=== PATIENT | female | born 1955 | race Caucasian/White ===

== ENCOUNTER 2022-03-28 15:54 | Inpatient (IN) | payer OTHER, BC ==
[2022-03-28 17:19] VITALS: BMI 21.9
[2022-03-28] MEDS ORDERED: IBUPROFEN 400 MG TABLET (FP) PO PRN (18:51)
[2022-03-28] MEDS ORDERED: BISMUTH SUBSALICYLATE 524 MG/30 ML PO PRN (18:51)
[2022-03-28] MEDS ORDERED: MAGNESIUM CITRATE 300 ML BOTTLE PO PRN (18:51)
[2022-03-28] MEDS ORDERED: ONDANSETRON *ODT* 4 MG TABLET SL PRN (18:51)
[2022-03-28] MEDS ORDERED: MAG HYDROX/AL HYDROX/SIMETH 30 ML UNIT-DOSE CUP PO PRN (18:51)
[2022-03-28] MEDS ORDERED: DICYCLOMINE HCL 10 MG CAPSULE PO PRN (18:51)
[2022-03-28] MEDS ORDERED: NALOXONE HCL (KLOXXADO) 8 MG SPRAY NS PRN (18:51)
[2022-03-28] MEDS ORDERED: ACETAMINOPHEN 325 MG TABLET (FP) PO PRN (18:51)
[2022-03-28] MEDS ORDERED: LOPERAMIDE HCL 2 MG CAPSULE PO PRN (18:51)
[2022-03-28] MEDS ORDERED: MAGNESIUM HYDROX 2400MG/30ML ORAL SUSPENSION 30 ML CUP PO PRN (18:51)
[2022-03-28] MEDS ORDERED: BENZOCAINE/MENTHOL (CHLORASEPTIC ) LOZENGE MM PRN (18:51)
[2022-03-28] MEDS ORDERED: diazePAM 5 MG TABLET ONE (19:30)
[2022-03-28] MEDS ORDERED: diazePAM 5 MG TABLET PO ONE (19:30)
[2022-03-28] MEDS: PRENATAL VITAMINS W/ FOLIC ACID TABLET (FP) PO SCH (19:35)
[2022-03-28] MEDS ORDERED: MELATONIN 5 MG TABLETS PO SCH (22:00)
[2022-03-28] MEDS: diazePAM 5 MG TABLET PO SCH (22:12)
[2022-03-28] MEDS: hydrOXYzine PAMOATE 25 MG CAPSULE (FP) PO SCH (22:12)
[2022-03-28] MEDS: METHOCARBAMOL 500 MG TABLET PO PRN (22:12)
[2022-03-28] MEDS: THIAMINE HCL 100 MG TABLET (FP) PO SCH (22:14)
[2022-03-28] MEDS: IBUPROFEN 600 MG TABLET (FP) PO PRN (23:22)
[2022-03-29] MEDS: diazePAM 5 MG TABLET PO PRN ×4 (00:42→19:13)
[2022-03-29] MEDS: METHOCARBAMOL 500 MG TABLET PO PRN ×3 (03:12→17:40)
[2022-03-29] MEDS: diazePAM 5 MG TABLET PO SCH ×4 (05:46→22:16)
[2022-03-29] MEDS: hydrOXYzine PAMOATE 25 MG CAPSULE (FP) PO SCH ×5 (05:46→22:16)
[2022-03-29] MEDS: PRENATAL VITAMINS W/ FOLIC ACID TABLET (FP) PO SCH (10:24)
[2022-03-29] MEDS: NICOTINE 21 MG/24 HOURS TOPICAL PATCH TD SCH ×2 (10:24)
[2022-03-29] MEDS: amLODIPine BESYLATE 5 MG TABLET (FP) PO SCH (10:24)
[2022-03-29 11:19] LABS: HEMATOCRIT 40.4 % (32.4-45.2); HEMOGLOBIN 13.6 GM/dL (10.7-15.3); MCH 31.8 pg (25.7-33.7); MCHC 33.6 g/dl (32.0-36.0); MEAN CELL VOLUME 94.7 fl (80-96); MEAN PLT VOLUME 8.4 fl (7.5-11.1); PLATELET COUNT 98 10^3/uL (134-434); RBC 4.27 M/mm3 (3.60-5.2); RDW 15.7 % (11.6-15.6); WHITE BLOOD COUNT 6.4 K/mm3 (4.0-10.0)
[2022-03-29 12:39] LABS: BLOOD UREA NITROGEN 14.2 mg/dL (7-18); CALCIUM 9.6 mg/dL (8.5-10.1)
[2022-03-29 12:40] LABS: ALBUMIN 3.8 g/dl (3.4-5.0)
[2022-03-29 12:43] LABS: CREATININE 0.8 mg/dL (0.55-1.3)
[2022-03-29 12:44] LABS: BILIRUBIN,TOTAL 2.2 mg/dL (0.2-1); TOT PROT 6.5 g/dl (6.4-8.2)
[2022-03-29] MEDS: SUVOREXANT 10 MG TABLET PO PRN (22:16)
[2022-03-29] MEDS: THIAMINE HCL 100 MG TABLET (FP) PO SCH (22:16)
[2022-03-30] MEDS: diazePAM 5 MG TABLET PO SCH ×3 (05:31→22:17)
[2022-03-30] MEDS: hydrOXYzine PAMOATE 25 MG CAPSULE (FP) PO SCH ×5 (05:31→22:17)
[2022-03-30] MEDS: IBUPROFEN 600 MG TABLET (FP) PO PRN (05:32)
[2022-03-30] MEDS: NICOTINE 21 MG/24 HOURS TOPICAL PATCH TD SCH (10:20)
[2022-03-30] MEDS: amLODIPine BESYLATE 5 MG TABLET (FP) PO SCH (10:20)
[2022-03-30] MEDS: PRENATAL VITAMINS W/ FOLIC ACID TABLET (FP) PO SCH (10:21)
[2022-03-30] MEDS ORDERED: NICOTINE POLACRILEX 4 MG GUM BUC PRN (13:52)
[2022-03-30] MEDS: NICOTINE 10 MG CARTRIDGE (INHALER) IH PRN (14:52)
[2022-03-30] MEDS: METHOCARBAMOL 500 MG TABLET PO PRN (18:04)
[2022-03-30] MEDS: diazePAM 5 MG TABLET PO PRN (18:05)
[2022-03-30] MEDS: THIAMINE HCL 100 MG TABLET (FP) PO SCH (22:18)
[2022-03-30] MEDS: SUVOREXANT 10 MG TABLET PO PRN (22:19)
[2022-03-31] MEDS: METHOCARBAMOL 500 MG TABLET PO PRN ×4 (02:28→23:23)
[2022-03-31] MEDS: diazePAM 5 MG TABLET PO PRN (02:29)
[2022-03-31] MEDS: hydrOXYzine PAMOATE 25 MG CAPSULE (FP) PO SCH ×5 (06:02→22:17)
[2022-03-31] MEDS: diazePAM 5 MG TABLET PO SCH ×2 (06:03→17:04)
[2022-03-31] MEDS: ACETAMINOPHEN 325 MG TABLET (FP) PO PRN ×3 (06:55→23:24)
[2022-03-31] MEDS: NICOTINE 10 MG CARTRIDGE (INHALER) IH PRN ×2 (10:12→19:20)
[2022-03-31] MEDS: amLODIPine BESYLATE 5 MG TABLET (FP) PO SCH (10:12)
[2022-03-31] MEDS: NICOTINE 21 MG/24 HOURS TOPICAL PATCH TD SCH (10:12)
[2022-03-31] MEDS: PRENATAL VITAMINS W/ FOLIC ACID TABLET (FP) PO SCH (10:13)
[2022-03-31] MEDS: SUVOREXANT 10 MG TABLET PO PRN (22:16)
[2022-03-31] MEDS: THIAMINE HCL 100 MG TABLET (FP) PO SCH (22:17)
[2022-04-01] MEDS: METHOCARBAMOL 500 MG TABLET PO PRN (05:28)
[2022-04-01] MEDS: hydrOXYzine PAMOATE 25 MG CAPSULE (FP) PO SCH (05:28)
[2022-04-01] MEDS ORDERED: diazePAM 5 MG TABLET PO ONE (06:00)
[2022-04-01 08:47] VITALS: BP 128/74; PULSE 76; RESP 17; TEMP 97.1
== END 2022-04-01 09:05 | disposition home or self-care (01) | DRG 897 ==
LOC: YASAS 15:54 → Y3N 19:39 → Y6N 19:43
PROVIDERS: ADMIT Allergy & Immunology; ATTEND Surgery
PROC: HZ2ZZZZ Detoxification Services for Substance Abuse Treatment (ICD-10-PCS; principal; 2022-03-28)
DX: F10.230 Alcohol dependence with withdrawal, uncomplicated (principal); F12.10 Cannabis abuse, uncomplicated; F10.280 Alcohol dependence with alcohol-induced anxiety disorder; F10.282 Alcohol dependence with alcohol-induced sleep disorder; F41.9 Anxiety disorder, unspecified; F32.A Depression, unspecified; D72.819 Decreased white blood cell count, unspecified; G47.30 Sleep apnea, unspecified; Z99.89 Dependence on other enabling machines and devices; Z91.410 Personal history of adult physical and sexual abuse; Z98.1 Arthrodesis status
CPT/HCPCS: 36415; 80053; 82247; 82962; 85027; 86780; 87811; C9803-CS; U0003; U0005